=== PATIENT | male | born 2000 ===

== ENCOUNTER 2022-05-13 11:22 | Inpatient (IN) | payer MEDICAID ==
[~2022-05-13] VITALS: Ht 188 cm; Wt 115.4 kg
[2022-05-13 12:35] LABS: BASOPHILS % (AUTO) 0.2 % (0.0-2.0); EOSINOPHILS % (AUTO) 0.2 % (1.0-6.0); HEMATOCRIT 42.9 % (41-53); LYMPHOCYTES # (AUTO) 1.1 K/uL (1.0-4.8); LYMPHOCYTES % (AUTO) 14.4 % (22.0-44.0); MEAN CORPUSCULAR HEMOGLOBIN 32.5 pg (26.0-34.0); MEAN CORPUSCULAR VOLUME 93 fL (80-100); MONOCYTES # (AUTO) 0.6 K/uL (0.1-1.0); MONOCYTES % (AUTO) 7.8 % (2.0-9.0); NEUTROPHILS % (AUTO) 77.4 % (40.0-70.0); PLATELET COUNT (AUTO) 223 K/uL (150-450); RED BLOOD CELL COUNT(AUTO) 4.62 MIL/uL (4.50-5.90); RED CELL DISTRIBUTION WIDTH 12.9 % (11.5-14.5)
[2022-05-13 12:41] LABS: ANION GAP 11 mmol/L (8-16); CALCIUM, TOTAL 9.4 mg/dL (8.8-10.5); CARBON DIOXIDE 28 mmol/L (22-29); CHLORIDE 104 mmol/L (98-107); CREATININE 0.82 mg/dL (0.60-1.30); GLOMERULAR FILTR. RATE CALC > 60 mL/min (>60); GLUCOSE,RANDOM 100 mg/dL (70-110); POTASSIUM 4.1 mmol/L (3.5-5.1); SODIUM SERUM 143 mmol/L (136-145); UREA NITROGEN, BLOOD 13 mg/dL (7-18)
[2022-05-13 12:47] LABS: ALANINE AMINOTRANSFERASE 23 U/L (12-78); ALBUMIN 5.4 g/dL (3.4-5.0); ALKALINE PHOSPHATASE 71 U/L (46-116); ASPARTATE AMINOTRANSFERASE 36 U/L (15-37); BILIRUBIN,TOTAL 3.8 mg/dL (0.1-1.0); TOTAL PROTEIN, SERUM 8.4 g/dL (6.4-8.2)
[2022-05-13] MEDS ORDERED: LORazepam 2 MG TABLET PO PRN (13:00)
[2022-05-13 18:11] LABS: COVID AG,FIA SOURCE NASAL SWAB
[2022-05-13 21:00] VITALS: BP 154/90
[2022-05-13] MEDS: HALOPERIDOL 5 MG TABLET PO PRN (21:02)
[2022-05-13] MEDS: ZOLPIDEM TARTRATE 10 MG TABLET PO PRN (21:02)
[2022-05-13 21:25] VITALS: BP 154/90
[2022-05-13] MEDS ORDERED: INFLUENZA VIRUS VACCINE QVS 2022-23 (6MO+)/PF 60 MCG/0.5 ML SYRINGE IM. ONE (21:30)
[2022-05-13] MEDS ORDERED: GuaiFENesin/D-METHORPHAN [SUGAR-FREE] 200-20MG/10 ML SYRUP UDCUP PO PRN (22:00)
[2022-05-13] MEDS ORDERED: CloNIDine HCL 0.1 MG TABLET PO PRN (22:00)
[2022-05-13] MEDS ORDERED: MAG HYDROX/AL HYDROX/SIMETH ES 30 ML SUSPENSION UDCUP PO PRN (22:00)
[2022-05-13] MEDS ORDERED: IBUPROFEN 400 MG TABLET PO PRN (22:00)
[2022-05-13] MEDS ORDERED: ALBUTEROL SULFATE HFA 90 MCG/PUFF 8 GM INHALER IH PRN (22:00)
[2022-05-13] MEDS ORDERED: ONDANSETRON HCL 4 MG TABLET PO PRN (22:00)
[2022-05-13] MEDS ORDERED: LOPERAMIDE HCL 2 MG CAPSULE PO PRN (22:00)
[2022-05-13] MEDS ORDERED: ACETAMINOPHEN 325 MG TABLET PO PRN (22:00)
[2022-05-13] MEDS ORDERED: PETROLATUM,WHITE 28 GM JELLY TP PRN (22:00)
[2022-05-13] MEDS ORDERED: MAGNESIUM HYDROXIDE SUSPENSION 30 ML UDCUP PO PRN (22:00)
[2022-05-13] MEDS ORDERED: DOCUSATE SODIUM 100 MG CAPSULE PO PRN (22:00)
[2022-05-13] MEDS ORDERED: NICOTINE 14 MG/24 HOUR PATCH TD PRN (22:00)
[2022-05-14] MEDS: HALOPERIDOL 5 MG TABLET PO PRN ×2 (08:15→19:55)
[2022-05-14 08:41] VITALS: BP 128/68
[2022-05-14 08:54] LABS: HEMOGLOBIN A1C 4.9 % (3.8-5.6)
[2022-05-14 09:00] LABS: CHOL/HDL RATIO 2.3 (4.2-7.3)
[2022-05-14 09:09] LABS: THYROID STIMULATING HORMONE 0.37 uIU/mL (0.36-3.74)
[2022-05-14] MEDS: RisperiDONE 1 MG TABLET PO SCH ×2 (10:36→16:04)
[2022-05-14 16:41] VITALS: BP 142/92
[2022-05-14] MEDS: ZOLPIDEM TARTRATE 10 MG TABLET PO PRN (20:47)
[2022-05-14 20:56] VITALS: BP 128/66
[2022-05-15 09:07] VITALS: BP 146/94
[2022-05-15] MEDS: RisperiDONE 1 MG TABLET PO SCH ×2 (10:10→17:02)
[2022-05-15 16:07] VITALS: BP 113/70
[2022-05-15] MEDS: ZOLPIDEM TARTRATE 10 MG TABLET PO PRN (20:17)
[2022-05-15 20:31] VITALS: BP 121/81
[2022-05-16 08:53] VITALS: BP 141/90
[2022-05-16] MEDS: RisperiDONE 1 MG TABLET PO SCH ×2 (09:03→16:15)
[2022-05-16 10:04] VITALS: BP 136/82
[2022-05-16 16:24] VITALS: BP 125/82
[2022-05-16 20:11] VITALS: BP 124/76
[2022-05-17 08:06] VITALS: BP 152/82
[2022-05-17] MEDS: RisperiDONE 1 MG TABLET PO SCH ×2 (08:35→16:12)
[2022-05-17 16:22] VITALS: BP 147/85
[2022-05-17 20:29] VITALS: BP 128/76
[2022-05-18] MEDS: RisperiDONE 1 MG TABLET PO SCH ×2 (09:17→16:07)
[2022-05-18 09:45] VITALS: BP 115/60
[2022-05-18 16:20] VITALS: BP 116/54
[2022-05-18 21:23] VITALS: BP 139/66
[2022-05-19] MEDS: RisperiDONE 1 MG TABLET PO SCH ×2 (08:42→16:13)
[2022-05-19 09:31] VITALS: BP 136/78
[2022-05-19 16:27] VITALS: BP 113/61
[2022-05-19 21:33] VITALS: BP 141/83
[2022-05-20] MEDS: RisperiDONE 1 MG TABLET PO SCH (09:02)
[2022-05-20 11:11] VITALS: BP 137/77
[2022-05-20] MEDS ORDERED: RISP1TAB98 PO (11:20)
== END 2022-05-20 12:15 | disposition home or self-care (01) | DRG 751 ==
LOC: EMS 11:24 → 3EI 17:38 → UNDOADMIN 20:55 → 3EX 05-18 23:41
PROVIDERS: ADMIT Psychiatry & Neurology Child & Adolescent Psychiatry; ATTEND Psychiatry & Neurology Child & Adolescent Psychiatry
DX: F29 Unspecified psychosis not due to a substance or known physiological condition (principal); F10.10 Alcohol abuse, uncomplicated; F15.10 Other stimulant abuse, uncomplicated; Z20.822 Contact with and (suspected) exposure to COVID-19; G47.00 Insomnia, unspecified; Z71.6 Tobacco abuse counseling; Z71.51 Drug abuse counseling and surveillance of drug abuser
CPT/HCPCS: 80053; 80061; 83036; 84443; 85025; 99285; G0378; G0480